=== PATIENT | male | born 1995 | race Caucasian/White ===

== ENCOUNTER 2018-06-10 21:52 | Emergency (ER) | payer SELFPAY ==
[2018-06-10 21:58] VITALS: BP 127/73; PULSE 100; TEMP 98.9; BMI 33.6
[2018-06-11] MEDS ORDERED: SODIUM CHLORIDE 0.9% 500 ML INFUS.BAG IV ONE (00:57)
[2018-06-11] MEDS ORDERED: ONDANSETRON 4 MG/2 ML VIAL IVPUSH ONE (00:57)
[2018-06-11] MEDS ORDERED: ACETAMINOPHEN 1000 MG/100 ML VIAL (NON FORMULARY) IVPB ONE (00:57)
--- NOTE | 2018-06-11 01:04 | PDOC ---
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 The emesis itself is NBNB. He works in a [employer] and has had exposure to sick individuals. He has not tried any medications for the symptoms. He has no PCP at this time and has not had laboratory work done recently. He has chronic unchanged night sweats but no weight loss or swollen lymph nodes. He denies fever. Past History - Past Medical History Allergies/Adverse Reactions: Allergies Allergy/AdvReac Type Severity Reaction Status Date / Time Sulfa (Sulfonamide Allergy Verified 06/10/18 21:59 Antibiotics) sulfamethoxazole Allergy Verified 06/10/18 21:59 [From Bactrim] trimethoprim [From Bactrim] Allergy Verified 06/10/18 21:59 Cancer: Yes (LUEKEMIA) COPD: No - Immunization History Immunization Up to Date: Yes - Suicide/Smoking/Psychosocial Hx Smoking History: Never smoked *Physical Exam - Vital Signs Last Vital Signs Temp Pulse Resp BP Pulse Ox 98.9 F 100 H 18 127/73 100 06/10/18 21:56 06/10/18 21:56 06/10/18 21:56 06/10/18 21:56 06/10/18 21:56
--- NOTE | 2018-06-11 01:58 | PDOC ---
Attending Attestation - Resident Resident Name: EnderSari - ED Attending Attestation I have performed the following: I have examined & evaluated the patient, The case was reviewed & discussed with the resident, I agree w/resident's findings & plan, Exceptions are as noted - HPI HPI: 06/11/18 01:57 this 22 yo male p/w nausea,vomiting He works at a [employer] - Physicial Exam PE: 06/11/18 01:58 wnwd 22 yo male in no acute distress head ncat neck supple lungs cta b/l cvs [id number] abd nontender, no guarding ext no e/c/c neuro axox3, no gross focal neuro deficits - Medical Decision Making 06/11/18 16:48 imp gastritis/viral illness
[2018-06-11] MEDS ORDERED: ACETAMINOPHEN INJECTION 100 ML IVPB ONE (02:37)
[2018-06-11] MEDS ORDERED: ONDANSETRON 4 MG/2 ML VIAL ONE (02:37)
[2018-06-11 02:53] LABS: BASO % 0.9 % (0-2.0); EOS % 1.4 % (0-4.5); HEMATOCRIT 42.2 % (35.4-49); MCH 26.5 pg (25.7-33.7); MCHC 33.1 g/dl (32.0-35.9); MEAN PLT VOLUME 9.4 fl (7.5-11.1); MONO % 7.5 % (3.8-10.2); NEUT % 65.2 % (42.8-82.8); PLATELET COUNT 203 K/MM3 (134-434); RBC 5.28 M/mm3 (4.00-5.60); RDW 14.3 % (11.9-15.9); WHITE BLOOD COUNT 12.1 K/mm3 (4.0-10.0)
[2018-06-11 03:06] LABS: INR 1.02 (0.83-1.09)
[2018-06-11 03:18] LABS: ALBUMIN 3.9 g/dl (3.4-5.0); ALK PHOS 79 U/L (45-117); ANION GAP 5 MMOL/L (8-16); BILIRUBIN,TOTAL 0.3 mg/dL (0.2-1); BLOOD UREA NITROGEN 17 mg/dL (7-18); CALCIUM 8.7 mg/dL (8.5-10.1); CHLORIDE 104 mmol/L (98-107); CO2 30 mmol/L (21-32); CREATININE 1.2 mg/dL (0.55-1.3); GLUCOSE,RANDOM 88 mg/dL (74-106); SGOT/AST 24 U/L (15-37); SGPT/ALT 27 U/L (13-61); SODIUM 140 mmol/L (136-145); TOT PROT 7.7 g/dl (6.4-8.2)
--- NOTE | 2018-06-11 03:29 | PDOC ---
*Physical Exam - Vital Signs Last Vital Signs Temp Pulse Resp BP Pulse Ox 98.9 F 100 H 18 127/73 100 06/10/18 21:56 06/10/18 21:56 06/10/18 21:56 06/10/18 21:56 06/10/18 21:56 ED Treatment Course - LABORATORY CBC & Chemistry Diagram: 06/11/18 02:40 06/11/18 02:40 - ADDITIONAL ORDERS Additional order review: Laboratory Results 06/11/18 02:40 Sodium 140 Potassium 4.0 Chloride 104 Carbon Dioxide 30 Anion Gap 5 L BUN 17 Creatinine 1.2 Creat Clearance w eGFR > 60 Random Glucose 88 Calcium 8.7 Total Bilirubin 0.3 AST 24 ALT 27 Alkaline Phosphatase 79 Total Protein 7.7 Albumin 3.9 06/11/18 02:40 RBC 5.28 MCV 80.0 MCHC 33.1 RDW 14.3 MPV 9.4 Neutrophils % 65.2 Lymphocytes % 25.0 Monocytes % 7.5 Eosinophils % 1.4 Basophils % 0.9 - Medications Given in the ED: ED Medications Discontinued Medications Generic Name Dose Route Start Last Admin Trade Name Freq PRN Reason Stop Dose Admin Acetaminophen 1,000 mg 06/11/18 00:57 06/11/18 02:45 Ofirmev Injection - IVPB 06/11/18 00:58 1,000 mg ONCE ONE Administration Ondansetron HCl 8 mg 06/11/18 00:57 06/11/18 02:45 Zofran Injection IVPUSH 06/11/18 00:58 8 mg NOW ONE Administration Sodium Chloride 2,000 ml 06/11/18 00:57 06/11/18 02:45 Normal Saline - IV 06/11/18 00:58 2,000 ml ONCE ONE Administration Medical Decision Making - Medical Decision Making 06/11/18 03:27 Case was signed out to me by Dr. Handley. Pt is feeling better at this time. Lab work is unremarkable. Pt to receive 2L NS with first bag currently running. Pt to be discharged once both IVF bags are done. 06/11/18 06:48 Pt continues to feel better. Informed to come to the ER if he was worsening of current symptoms or onset of new concerning symptoms. Prescription sent for zofran PO to take 1-2x/day PRN for nausea *DC/Admit/Observation/Transfer Diagnosis at time of Disposition: Diarrhea - Discharge Dispostion Disposition: HOME Condition at time of disposition: Stable Decision to Admit order: No - Referrals - Patient Instructions Additional Instructions: Follow up with your primary care doctor within the next week. If you develop worsening of your current symptoms or onset of new concerning symptoms come back to the ER. Take the medication prescribed to you, zofran, if you feel nausea as prescribed. - Post Discharge Activity
== END 2018-06-11 06:55 | disposition home or self-care (01) ==
LOC: JER 21:52
PROC: 3E033GC Introduction of Other Therapeutic Substance into Peripheral Vein, Percutaneous Approach (ICD-10-PCS; principal; 2018-06-10)
PROC: 3E033NZ Introduction of Analgesics, Hypnotics, Sedatives into Peripheral Vein, Percutaneous Approach (ICD-10-PCS; 2018-06-10)
DX: R19.7 Diarrhea, unspecified (principal); R11.2 Nausea with vomiting, unspecified
CPT/HCPCS: 36415; 80053; 85025; 85610; 99281-25; 99282-25; J0131

== ENCOUNTER 2019-02-04 10:10 | Emergency (ER) | payer SELFPAY | END 2019-02-04 15:00 | disposition home or self-care (01) | LOC: JER 10:10 ==

== ENCOUNTER 2019-09-06 09:51 | Emergency (ER) | payer SELFPAY ==
[2019-09-06 10:00] VITALS: BMI 31.6
--- NOTE | 2019-09-06 10:20 | PDOC ---
History of Present Illness - General Chief Complaint: Pain, Acute Stated Complaint: VOMITING Time Seen by Provider: 09/06/19 10:20 Past History - Past Medical History Allergies/Adverse Reactions: Allergies Allergy/AdvReac Type Severity Reaction Status Date / Time metoclopramide [From Reglan] Allergy Verified 09/06/19 10:01 mushroom Allergy Verified 09/06/19 10:01 Sulfa (Sulfonamide Allergy Verified 06/10/18 21:59 Antibiotics) sulfamethoxazole Allergy Verified 06/10/18 21:59 [From Bactrim] trimethoprim [From Bactrim] Allergy Verified 06/10/18 21:59 Home Medications: Ambulatory Orders Ondansetron HCl [Zofran] 4 mg PO BID PRN 3 Days #6 tablet 09/06/19 Cancer: Yes (LUEKEMIA) COPD: No - Immunization History Immunization Up to Date: Yes - Psycho Social/Smoking Cessation Hx Smoking History: Never smoked Have you smoked in the past 12 months: No Information on smoking cessation initiated: No Hx Alcohol Use: No Drug/Substance Use Hx: No *Physical Exam - Vital Signs Last Vital Signs Temp Pulse Resp BP Pulse Ox 99.1 F 122 H 18 129/80 96 09/06/19 09:58 09/06/19 09:58 09/06/19 09:58 09/06/19 09:58 09/06/19 09:58 ED Treatment Course - LABORATORY CBC & Chemistry Diagram: 09/06/19 11:08 09/06/19 11:08 Medical Decision Making - Medical Decision Making 09/06/19 10:53 -flu, labs -EKG -Zofran,IVF,Pepcid,Tylenol 09/06/19 13:23 CXR reviewed - no acute pathology Labs reviewed. No concerning findings. EKG reviewed: sinus tachycardia, 105bpm, normal intervals, normal axis, no e/o acute ischemia Pt still nauseated, allergic to Reglan - 4 zofran, IVF. 09/06/19 14:27 Tolerated PO, feeling better. D/c with PCP referral and zofran rx Discharge - Discharge Information Problems reviewed: Yes Clinical Impression/Diagnosis: Nausea & vomiting Condition: Improved Disposition: HOME - Admission No - Additional Discharge Information Prescriptions: Ondansetron HCl [Zofran] 4 mg PO BID PRN 3 Days #6 tablet PRN Reason: Nausea And/Or Vomiting - Follow up/Referral Referrals: [facility] [place] [facility] [place] [Provider Group] - Patient Discharge Instructions Patient Printed Discharge Instructions: DI for Viral Upper Respiratory Infection -- Adult Additional Instructions: Your EKG, chest X-Ray, and labs show no signs for an emergent condition such as a pneumonia or flu. Your symptoms are most likely due to an viral infection. At this time, it's most important to stay hydrated. Take Zofran (prescription sent to pharmacy) as prescribed as needed for nausea and vomiting. If you experience pain, you can take Tylenol or Ibuprofen as directed on the medication bottle, but do not exceed 3g of Ibuprofen or 4g of Tylenol a day. We have given you a referral to our primary care clinic - call today to make an appointment for with 72 hours. Return to the Emergency Department immediately for any new or worsening symptoms including difficulty breathing, inability to keep down water, or passing out. - Post Discharge Activity Work/Back to School Note: Back to Work
[2019-09-06] MEDS ORDERED: SODIUM CHLORIDE 0.9% 500 ML INFUS.BAG IV ONE ×2 (10:40→12:51)
[2019-09-06] MEDS ORDERED: ACETAMINOPHEN 1000 MG/100 ML VIAL (NON FORMULARY) IVPB ONE (10:40)
[2019-09-06] MEDS ORDERED: FAMOTIDINE 20 MG/50 ML IVPB 20 MG/50 ML MG IVPB ONE ×2 (10:40→10:55)
[2019-09-06] MEDS ORDERED: ONDANSETRON 4 MG/2 ML VIAL IVPUSH ONE ×2 (10:40→12:51)
[2019-09-06] MEDS ORDERED: ONDANSETRON 4 MG/2 ML VIAL ONE ×2 (10:55→13:27)
[2019-09-06 11:21] LABS: BASO % 0.6 % (0-2.0); EOS % 0.6 % (0-4.5); HEMATOCRIT 47.7 % (35.4-49); HEMOGLOBIN 15.6 GM/dL (11.7-16.9); LYMPH % 10.4 % (8-40); MCH 26.3 pg (25.7-33.7); MCHC 32.7 g/dl (32.0-35.9); MEAN CELL VOLUME 80.4 fl (80-96); MEAN PLT VOLUME 9.8 fl (7.5-11.1); MONO % 10.8 % (3.8-10.2); NEUT % 77.6 % (42.8-82.8); PLATELET COUNT 181 K/MM3 (134-434); RBC 5.93 M/mm3 (4.00-5.60); RDW 14.5 % (11.9-15.9); WHITE BLOOD COUNT 13.4 K/mm3 (4.0-10.0)
[2019-09-06 11:23] LABS: EPI CELLS 0.6 /HPF (0-5/HPF); HYALINE CASTS 1 /lpf (0-8); URINE APPEARANCE CLEAR; URINE BACTERIA 0 /hpf (NEGATIVE); URINE BILIRUBIN NEGATIVE (NEGATIVE); URINE COLOR YELLOW; URINE GLUCOSE (UA) NEGATIVE (NEGATIVE); URINE KETONE NEGATIVE (NEGATIVE); URINE LEUK ESTERASE NEGATIVE (NEGATIVE); URINE NITRITE NEGATIVE (NEGATIVE); URINE PROTEIN NEGATIVE (NEGATIVE); URINE RBC 2 /hpf (0-4); URINE UROBILINOGEN 0.2 mg/dL (0.2-1.0); URINE WBC 1 /hpf (0-5)
--- NOTE | 2019-09-06 11:51 | PDOC ---
Documentation entered by Kymberly Mayen SCRIBE, acting as scribe for Rosaura Sen MD. Rosaura Sen MD: This documentation has been prepared by the Tiarra barber Xhesika, SCRIBE, under my direction and personally reviewed by me in its entirety. I confirm that the documentation accurately reflects all work, treatment, procedures, and medical decision making performed by me. Attending Attestation - Resident Resident Name: Tarah Ansari - HPI HPI: 09/06/19 11:15 The patient is a 24 year old male with a significant PMH of leukemia (at age 5, tx with chemo and BM transplant with resolution) who presents to the emergency department for fever, chills, generalised body aches, vomiting and LUQ abdominal pain. The patient describes his abdominal pain as 4/10 in severity, worsen when vomiting. The patient denies chest pain, shortness of breath, headache and dizziness. Denies cough, nausea, diarrhea and constipation. Allergies: Metoclopramide, sulfa, etc - Physicial Exam PE: 09/06/19 11:15 GENERAL: Awake, alert, + mildly uncomfortable. NECK: Normal ROM, supple, no lymphadenopathy, JVD, or masses LUNGS: Breath sounds equal, clear to auscultation bilaterally. No wheezes, and no crackles HEART: Regular rate and rhythm, normal S1 and S2, no murmurs, rubs or gallops ABDOMEN: Soft, nontender, normoactive bowel sounds. No guarding, no rebound. No masses EXTREMITIES: Normal range of motion, no edema. No clubbing or cyanosis. No cords, erythema, or tenderness NEUROLOGICAL: Cranial nerves II through XII grossly intact. Normal speech, normal gait SKIN: Warm, Dry, normal turgor, no rashes or lesions noted. - Medical Decision Making 09/06/19 11:46 Pt presents to the ED complaining of generalized malaise, fever, body aches, nausea and vomiting and vague abdominal discomfort. Differential includes flu, viral gastroenteritis. Will give IVF and nausea control, check flu swab and reassess.
[2019-09-06 12:05] LABS: ALBUMIN 4.1 g/dl (3.4-5.0); BILIRUBIN,TOTAL 0.4 mg/dL (0.2-1); BLOOD UREA NITROGEN 15.4 mg/dL (7-18); CREATININE 1.1 mg/dL (0.55-1.3); MAGNESIUM 2.2 mg/dL (1.8-2.4); PHOSPHOROUS 2.4 mg/dL (2.5-4.9); POTASSIUM 4.1 mmol/L (3.5-5.1); TOT PROT 7.9 g/dl (6.4-8.2)
[2019-09-06 14:20] VITALS: BP 126/69; PULSE 92; TEMP 97.8
--- NOTE | 2019-09-06 15:09 | EKG ---
Test Reason : Blood Pressure : / mmHG Vent. Rate : 105 BPM Atrial Rate : 105 BPM P-R Int : 130 ms QRS Dur : 096 ms QT Int : 312 ms P-R-T Axes : 065 038 037 degrees QTc Int : 412 ms SINUS TACHYCARDIA OTHERWISE NORMAL ECG NO PREVIOUS ECGS AVAILABLE Confirmed by WENDY NUNEZ MD ([id number]) on 09/06/2019 3:08:40 PM Referred By: Confirmed By:WENDY NUNEZ MD
== END 2019-09-06 14:51 | disposition home or self-care (01) ==
LOC: JER 09:51
DX: B34.9 Viral infection, unspecified (principal); C95.91 Leukemia, unspecified, in remission; Z88.2 Allergy status to sulfonamides; Z88.8 Allergy status to other drugs, medicaments and biological substances; Z91.018 Allergy to other foods
CPT/HCPCS: 36415; 71046-TC-FY; 80053; 81003; 83690; 83735; 84100; 85025; 87086; 87804; 93005; 93010; 99284-25; J0131